=== PATIENT | male | born 1980 | race Two or more races ===

== ENCOUNTER 2021-10-16 21:43 | Observation (INO) | payer OTHER ==
[2021-10-16] MEDS ORDERED: MORPHINE SULFATE 4 MG/ML SYRINGE IV STA (22:22)
--- NOTE | 2021-10-16 22:48 | ED ---
Abdominal Pain HPI - General Chief Complaint: Abdominal Pain Stated Complaint: Severe stomach pain Time Seen by Provider: 10/16/21 22:00 Source: patient Mode of arrival: ambulatory Limitations: no limitations - History of Present Illness MD Complaint: abdominal pain Onset/Timin -: hour(s) Location: periumbilical, epigastric Radiation: none Migration to: no migration Severity: moderate Quality: other (Squeezing/tightness) Consistency: constant Improves With: nothing Worsens With: nothing Associated Symptoms: denies other symptoms - Related Data Home Medications Medication Instructions Recorded Confirmed No Known Home Medications 10/16/21 10/16/21 Allergies Allergy/AdvReac Type Severity Reaction Status Date / Time No Known Allergies Allergy Verified 10/16/21 22:17 Review of Systems ROS Statement: Those systems with pertinent positive or pertinent negative responses have been documented in the HPI. ROS Other: All systems not noted in ROS Statement are negative. Constitutional: Denies: fever, chills Respiratory: Denies: cough, dyspnea Cardiovascular: Denies: chest pain, palpitations Gastrointestinal: Reports: as per HPI, abdominal pain, diarrhea. Denies: nausea, vomiting, constipation, hematemesis, melena, hematochezia Genitourinary: Denies: dysuria, hematuria, testicular pain, testicular mass Musculoskeletal: Denies: back pain Skin: Denies: rash Neurological: Denies: headache, weakness, numbness Past Medical History Past Medical History: No Reported History History of Any Multi-Drug Resistant Organisms: None Reported Past Surgical History: Ear Surgery Past Psychological History: No Psychological Hx Reported Smoking Status: Never smoker Past Alcohol Use History: None Reported Past Drug Use History: None Reported General Exam Limitations: no limitations General appearance: alert, in no apparent distress Head exam: Present: atraumatic, normocephalic Eye exam: Present: normal appearance. Absent: scleral icterus, conjunctival injection Respiratory exam: Present: normal lung sounds bilaterally. Absent: respiratory distress, wheezes, rales, rhonchi, stridor Cardiovascular Exam: Present: regular rate, normal rhythm, normal heart sounds. Absent: systolic murmur, diastolic murmur, rubs, gallop GI/Abdominal exam: Present: soft, hernia (Small umbilical hernia with mild tenderness.). Absent: distended, tenderness, guarding, rebound, rigid, mass, pulsatile mass Extremities exam: Present: normal inspection, normal capillary refill. Absent: pedal edema, calf tenderness Back exam: Present: normal inspection. Absent: CVA tenderness (R), CVA tenderness (L) Neurological exam: Present: alert Skin exam: Present: warm, dry, intact, normal color. Absent: rash Course Vital Signs 10/16/21 21:44 Temperature 97.9 F Pulse Rate 79 Respiratory 20 Rate Blood Pressure 148/84 O2 Sat by Pulse 98 Oximetry Medical Decision Making - Lab Data Result diagrams: 10/16/21 22:44 10/16/21 22:44 Lab Results 10/16/21 10/16/21 10/16/21 Range/Units 22:44 22:44 22:44 WBC 14.7 H (3.8-10.6) k/uL RBC 5.03 (4.30-5.90) m/uL Hgb 15.5 (13.0-17.5) gm/dL Hct 45.2 (39.0-53.0) % MCV 89.9 (80.0-100.0) fL MCH 30.7 (25.0-35.0) pg MCHC 34.2 (31.0-37.0) g/dL RDW 13.0 (11.5-15.5) % Plt Count 215 (150-450) k/uL MPV 8.3 Neutrophils % 81 % Lymphocytes % 12 % Monocytes % 6 % Eosinophils % 1 % Basophils % 0 % Neutrophils # 11.9 H (1.3-7.7) k/uL Lymphocytes # 1.7 (1.0-4.8) k/uL Monocytes # 0.9 (0-1.0) k/uL Eosinophils # 0.1 (0-0.7) k/uL Basophils # 0.1 (0-0.2) k/uL Sodium 138 (137-145) mmol/L Potassium 3.7 (3.5-5.1) mmol/L Chloride 100 (98-107) mmol/L Carbon Dioxide 31 H (22-30) mmol/L Anion Gap 7 mmol/L BUN 12 (9-20) mg/dL Creatinine 0.94 (0.66-1.25) mg/dL Est GFR (CKD-EPI)AfAm >90 (>60 ml/min/1.73 sqM) Est GFR (CKD-EPI)NonAf >90 (>60 ml/min/1.73 sqM) Glucose 140 H (74-99) mg/dL Plasma Lactic Acid Mak (0.7-2.0) mmol/L Calcium 10.7 H (8.4-10.2) mg/dL Total Bilirubin 1.2 (0.2-1.3) mg/dL AST 28 (17-59) U/L ALT 45 (4-49) U/L Alkaline Phosphatase 61 (38-126) U/L Total Protein 7.9 (6.3-8.2) g/dL Albumin 4.5 (3.5-5.0) g/dL Amylase 69 (30-110) U/L Lipase 60 (23-300) U/L Urine Color Yellow Urine Appearance Turbid (Clear) Urine pH 7.0 (5.0-8.0) Ur Specific [place] 1.016 (1.001-1.035) Urine Protein Negative (Negative) Urine Glucose (UA) Negative (Negative) Urine Ketones 1+ H (Negative) Urine Blood Negative (Negative) Urine Nitrite Negative (Negative) Urine Bilirubin Negative (Negative) Urine Urobilinogen <2.0 (<2.0) mg/dL Ur Leukocyte Esterase Negative (Negative) Urine WBC 1 (0-5) /hpf Amorphous Sediment Moderate H (None) /hpf Urine Bacteria Rare H (None) /hpf Urine Mucus Rare H (None) /hpf 10/16/21 Range/Units 22:44 WBC (3.8-10.6) k/uL RBC (4.30-5.90) m/uL Hgb (13.0-17.5) gm/dL Hct (39.0-53.0) % MCV (80.0-100.0) fL MCH (25.0-35.0) pg MCHC (31.0-37.0) g/dL RDW (11.5-15.5) % Plt Count (150-450) k/uL MPV Neutrophils % % Lymphocytes % % Monocytes % % Eosinophils % % Basophils % % Neutrophils # (1.3-7.7) k/uL Lymphocytes # (1.0-4.8) k/uL Monocytes # (0-1.0) k/uL Eosinophils # (0-0.7) k/uL Basophils # (0-0.2) k/uL Sodium (137-145) mmol/L Potassium (3.5-5.1) mmol/L Chloride (98-107) mmol/L Carbon Dioxide (22-30) mmol/L Anion Gap mmol/L BUN (9-20) mg/dL Creatinine (0.66-1.25) mg/dL Est GFR (CKD-EPI)AfAm (>60 ml/min/1.73 sqM) Est GFR (CKD-EPI)NonAf (>60 ml/min/1.73 sqM) Glucose (74-99) mg/dL Plasma Lactic Acid Mak 1.2 (0.7-2.0) mmol/L Calcium (8.4-10.2) mg/dL Total Bilirubin (0.2-1.3) mg/dL AST (17-59) U/L ALT (4-49) U/L Alkaline Phosphatase (38-126) U/L Total Protein (6.3-8.2) g/dL Albumin (3.5-5.0) g/dL Amylase (30-110) U/L Lipase (23-300) U/L Urine Color Urine Appearance (Clear) Urine pH (5.0-8.0) Ur Specific [place] (1.001-1.035) Urine Protein (Negative) Urine Glucose (UA) (Negative) Urine Ketones (Negative) Urine Blood (Negative) Urine Nitrite (Negative) Urine Bilirubin (Negative) Urine Urobilinogen (<2.0) mg/dL Ur Leukocyte Esterase (Negative) Urine WBC (0-5) /hpf Amorphous Sediment (None) /hpf Urine Bacteria (None) /hpf Urine Mucus (None) /hpf Disposition Clinical Impression: Abdominal pain, Cholecystitis Disposition: ADMITTED IP TO THIS HOSP Condition: Good Is patient prescribed a controlled substance at d/c from ED?: No Referrals: Ro Granado MD [Primary Care Provider] - 1-2 days
--- NOTE | 2021-10-16 22:58 | CT ---
EXAMINATION TYPE: CT abdomen pelvis wo con DATE OF EXAM: 10/16/2021 COMPARISON: None HISTORY: Epigastric pain CT DLP: 613.1 mGycm Automated exposure control for dose reduction was used. Images obtained from the diaphragm to the floor the pelvis without contrast. Lung bases are clear. There is no pleural effusion. Heart size is normal. There is no pericardial eff usion. Liver spleen and stomach pancreas gallbladder appear intact. Bile ducts are nondilated. There is some minimal stranding around the gallbladder. There is no adrenal mass. Kidneys have normal size and contour. There is no hydronephrosis. Ureters a re not dilated. There is no retroperitoneal adenopathy. Appendix is lateral and appears normal. Bladd er distends smoothly. There is no inguinal hernia. There is no free fluid in the pelvis. There is no evidence of a pelvic mass. The lumbar vertebrae have normal alignment. There is no compression fractu re. Bony pelvis is intact. The hip joints are intact. There is no mesenteric edema. There is no ascites or free air. There is no evidence of a bowel obstru ction. Small bowel pattern is normal. IMPRESSION: There is suggestion of some mild stranding around the gallbladder that could be cholecystitis. No dil ated ducts. Normal appendix.
[2021-10-16 23:18] LABS: Basophils # (A) 0.1 k/uL (0-0.2); Basophils % (A) 0 %; Eosinophils # (A) 0.1 k/uL (0-0.7); Eosinophils % (A) 1 %; HCT 45.2 % (39.0-53.0); HGB 15.5 gm/dL (13.0-17.5); Lymphocytes # (A) 1.7 k/uL (1.0-4.8); Lymphocytes % (A) 12 %; MCH 30.7 pg (25.0-35.0); MCHC 34.2 g/dL (31.0-37.0); MCV 89.9 fL (80.0-100.0); Mean Platelet Volume 8.3; Monocytes # (A) 0.9 k/uL (0-1.0); Monocytes % (A) 6 %; Neutrophils # (A) 11.9 k/uL (1.3-7.7); Neutrophils % (A) 81 %; Platelet Count 215 k/uL (150-450); RBC 5.03 m/uL (4.30-5.90); WBC 14.7 k/uL (3.8-10.6)
[2021-10-16 23:30] LABS: ALT 45 U/L (4-49); AST 28 U/L (17-59); African American GFR (CKD) >90 (>60 ml/min/1.73 sqM); Albumin 4.5 g/dL (3.5-5.0); Alkaline Phosphatase 61 U/L (38-126); Amylase 69 U/L (30-110); Anion Gap 7 mmol/L; Blood Urea Nitrogen 12 mg/dL (9-20); Calcium 10.7 mg/dL (8.4-10.2); Carbon Dioxide 31 mmol/L (22-30); Chloride 100 mmol/L (98-107); Glucose 140 mg/dL (74-99); Lipase 60 U/L (23-300); Non-African American GFR(CKD) >90 (>60 ml/min/1.73 sqM); Potassium 3.7 mmol/L (3.5-5.1); Sodium 138 mmol/L (137-145); Total Bilirubin 1.2 mg/dL (0.2-1.3); Total Protein 7.9 g/dL (6.3-8.2)
[2021-10-16 23:59] LABS: Amorphous Sediment,Urine Moderate /hpf; Appearance,Urine Turbid (Clear); Bacteria,Urine Rare /hpf; Bilirubin,Urine Negative (Negative); Blood,Urine Negative (Negative); Color,Urine Yellow; Glucose,Urine (UA) Negative (Negative); Ketones,Urine 1+ (Negative); Leukocyte Esterase,Urine Negative (Negative); Mucus,Urine Rare /hpf; Nitrite,Urine Negative (Negative); Protein,Urine Negative (Negative); Specific Gravity,Urine 1.016 (1.001-1.035); Urobilinogen,Urine <2.0 mg/dL (<2.0); WBC,Urine 1 /hpf (0-5)
[2021-10-17] MEDS ORDERED: ONDANSETRON 4 MG/2 ML VIAL IVP PRN (00:10)
[2021-10-17] MEDS ORDERED: NALOXONE 0.4 MG/ML 1 ML VIAL IV PRN (00:10)
[2021-10-17] MEDS ORDERED: PIPERACILLIN-TAZOBACTAM 3.375 GM in SODIUM CHLORIDE 0.9% 100 ML IVPB STA (00:11)
[2021-10-17] MEDS: MORPHINE SULFATE 4 MG/ML SYRINGE IV PRN ×2 (01:33→21:26)
[2021-10-17] MEDS: SODIUM CHLORIDE 0.9% 1,000 ML IV SCH ×4 (06:59→23:42)
[2021-10-17] MEDS: PIPERACILLIN-TAZOBACTAM 3.375 GM in SODIUM CHLORIDE 0.9% 100 ML IVPB SCH ×2 (08:34→19:07)
[2021-10-17] MEDS: PANTOPRAZOLE 40 MG/10 ML VIAL IV SCH (08:34)
--- NOTE | 2021-10-17 09:49 | P.GSHP ---
History of Present Illness H&P Date: 10/17/21 CHIEF COMPLAINT: Abdominal pain HISTORY OF PRESENT ILLNESS: This is a 41-year-old male who presents with periumbilical and epigastric abdominal pain. He reports that pain started 3 days ago. He has been nausea and reports a decreased appetite. He is tender in the right upper quadrant on exam. He had a computed tomography scan of the abdomen and pelvis showing stranding around the gallbladder could be related to cholecystitis. White count elevated at 14.7. He is currently nothing by mouth and scheduled for laparoscopic cholecystectomy today with Dr. love. He denies any fever chills or sweats. PAST MEDICAL HISTORY: None PAST SURGICAL HISTORY: No prior abdominal surgeries MEDICATIONS: See list. ALLERGIES: See list. SOCIAL HISTORY: No illicit drug use. REVIEW OF SYSTEMS: CONSTITUTIONAL: Denies fever or chills. HEENT: Denies blurred vision, vision changes, or eye pain. Denies hemoptysis CARDIOVASCULAR: Denies chest pain or pressure. RESPIRATORY: No shortness of breath. GASTROINTESTINAL: See HPI for pertinent findings HEMATOLOGIC: Denies bleeding disorders. GENITOURINARY: Denies any blood in urine or increased urinary frequency. SKIN: Denies pruitis. Denies rash. PHYSICAL EXAM: VITAL SIGNS: Reviewed GENERAL: Well-developed in no acute distress. HEENT: No sclera icterus. Extraocular movements grossly intact. Moist buccal mucosa. Head is atraumatic, normocephalic. No nasal drainage. ABDOMEN: Soft. Nondistended. Tenderness to palpation right upper quadrant NEUROLOGIC: Alert and oriented. Cranial nerves II through XII grossly intact. LABORATORY DATA: WBC 14.7 hemoglobin 15.5 platelets 2:15 Sodium 138 potassium 3.7 crit and 0.94 Lactic acid 1.2 LFTs normal Lipase 60 IMAGING: Computed tomography scan abdomen and pelvis suggestive of some mild stranding around the gallbladder that could be cholecystitis. No dilated ducts. Normal appendix. ASSESSMENT: 1. Acute cholecystitis PLAN: -Patient scheduled for laparoscopic cholecystectomy today with Dr. love -Keep patient nothing by mouth -Continue IV fluids -Continue IV antibiotics -Continue pain medication as needed Physician Food And Drug Inspector note has been reviewed by physician. Signing provider agrees with the documented findings, assessment, and plan of care. Past Medical History Past Medical History: No Reported History History of Any Multi-Drug Resistant Organisms: None Reported Past Surgical History: Ear Surgery Past Psychological History: No Psychological Hx Reported Smoking Status: Never smoker Past Alcohol Use History: None Reported Past Drug Use History: None Reported Medications and Allergies Home Medications Medication Instructions Recorded Confirmed Type No Known Home Medications 10/16/21 10/16/21 History Allergies Allergy/AdvReac Type Severity Reaction Status Date / Time No Known Allergies Allergy Verified 10/16/21 22:17 Surgical - Exam Vital Signs Temp Pulse Resp BP Pulse Ox 97.9 F 79 20 148/84 98 10/16/21 21:44 10/16/21 21:44 10/16/21 21:44 10/16/21 21:44 10/16/21 21:44 Results - Labs 10/16/21 22:44 10/16/21 22:44 Abnormal Lab Results - Last 24 Hours (Table) 10/16/21 10/16/21 10/16/21 Range/Units 22:44 22:44 22:44 WBC 14.7 H (3.8-10.6) k/uL Neutrophils # 11.9 H (1.3-7.7) k/uL Carbon Dioxide 31 H (22-30) mmol/L Glucose 140 H (74-99) mg/dL Calcium 10.7 H (8.4-10.2) mg/dL Urine Ketones 1+ H (Negative) Amorphous Sediment Moderate H (None) /hpf Urine Bacteria Rare H (None) /hpf Urine Mucus Rare H (None) /hpf Diabetes panel 10/16/21 Range/Units 22:44 Sodium 138 (137-145) mmol/L Potassium 3.7 (3.5-5.1) mmol/L Chloride 100 (98-107) mmol/L Carbon Dioxide 31 H (22-30) mmol/L BUN 12 (9-20) mg/dL Creatinine 0.94 (0.66-1.25) mg/dL Glucose 140 H (74-99) mg/dL Calcium 10.7 H (8.4-10.2) mg/dL AST 28 (17-59) U/L ALT 45 (4-49) U/L Alkaline Phosphatase 61 (38-126) U/L Total Protein 7.9 (6.3-8.2) g/dL Albumin 4.5 (3.5-5.0) g/dL Calcium panel 10/16/21 Range/Units 22:44 Calcium 10.7 H (8.4-10.2) mg/dL Albumin 4.5 (3.5-5.0) g/dL Pituitary panel 10/16/21 Range/Units 22:44 Sodium 138 (137-145) mmol/L Potassium 3.7 (3.5-5.1) mmol/L Chloride 100 (98-107) mmol/L Carbon Dioxide 31 H (22-30) mmol/L BUN 12 (9-20) mg/dL Creatinine 0.94 (0.66-1.25) mg/dL Glucose 140 H (74-99) mg/dL Calcium 10.7 H (8.4-10.2) mg/dL Adrenal panel 10/16/21 Range/Units 22:44 Sodium 138 (137-145) mmol/L Potassium 3.7 (3.5-5.1) mmol/L Chloride 100 (98-107) mmol/L Carbon Dioxide 31 H (22-30) mmol/L BUN 12 (9-20) mg/dL Creatinine 0.94 (0.66-1.25) mg/dL Glucose 140 H (74-99) mg/dL Calcium 10.7 H (8.4-10.2) mg/dL Total Bilirubin 1.2 (0.2-1.3) mg/dL AST 28 (17-59) U/L ALT 45 (4-49) U/L Alkaline Phosphatase 61 (38-126) U/L Total Protein 7.9 (6.3-8.2) g/dL Albumin 4.5 (3.5-5.0) g/dL
[2021-10-17] MEDS ORDERED: IV FLUID CONTINUATION 1,000 ML IV ONE (13:00)
[2021-10-17] MEDS ORDERED: HEPARIN SODIUM,PORCINE 5,000 UNIT/ML 1 ML VIAL SQ ONE (13:11)
[2021-10-17] MEDS ORDERED: HEPARIN SODIUM,PORCINE/PF 5,000 UNIT/0.5 ML SYRINGE SQ ONE (13:11)
[2021-10-17] MEDS ORDERED: LIDOCAINE 1% INJ 10MG/ML (20 ML MDV) ONE (13:26)
[2021-10-17] MEDS ORDERED: PROPOFOL 10 MG/ML 20 ML VIAL IV ONE (13:26)
[2021-10-17] MEDS ORDERED: GLYCOPYRROLATE 0.2 MG/ML 2 ML VIAL ONE (13:26)
[2021-10-17] MEDS ORDERED: HYDROmorphone (PF) 1 MG/ML ONE (13:26)
[2021-10-17] MEDS ORDERED: NEOSTIGMINE 1 MG/ML 10 ML VIAL ONE (13:26)
[2021-10-17] MEDS ORDERED: MIDAZOLAM 2 MG/2 ML VIAL ONE (13:26)
[2021-10-17] MEDS ORDERED: ROCURONIUM 10 MG/ML (5 ML VIAL) IV ONE (13:26)
[2021-10-17] MEDS ORDERED: fentaNYL (PF) 50 MCG/ML 2 ML AMP ONE (13:26)
[2021-10-17] MEDS ORDERED: SUCCINYLCHOLINE CHLORIDE 100 MG/5 ML SYR IV ONE (13:26)
[2021-10-17] MEDS ORDERED: BUPIVACAIN-EPI 0.25%-1:200,000 30 ML VIAL SQ ONE ×2 (13:28→13:47)
--- NOTE | 2021-10-17 14:24 | P.OP ---
Date of Procedure: 10/17/21 Preoperative Diagnosis: Cholecystitis Postoperative Diagnosis: Cholecystitis Cholelithiasis Procedure(s) Performed: Laparoscopic cholecystectomy Anesthesia: THIEN Surgeon: David Muhammad Estimated Blood Loss (ml): 10 Pathology: other (Gallbladder) Condition: stable Disposition: PACU Description of Procedure: The patient was placed on the operating table. The patient received a general endotracheal tube anesthesia. The patients abdomen was prepped and draped in the usual sterile fashion. Through an infraumbilical stab incision, the fascia of the anterior abdominal wall was grasped with a pair of Kochers and then the Veress needle was placed in the peritoneal cavity. Position of the Veress needle was confirmed with positive drop test. The abdomen was then insufflated. After adequate insufflation, the 10 mm trocar was placed in the peritoneal cavity. Following this the laparoscope was placed in the peritoneal cavity. The patient was placed in the head-up, right side up position and then a 5 mm trocar was placed in the right lateral and right subcostal position under direct visualization. A 8 mm trocar was placed in the epigastric position. The gallbladder was grasped in the fundus and infundibulum. Traction on the gallbladder was placed in the lateral and the cephalad positions. The triangle of [place] was visualized.. The cystic duct was bluntly dissected until the union of the cystic duct and common bile duct was seen. A critical view of safety was achieved. The cystic duct was then divided and sealed with the Harmonic scissors. A PDS Endoloop was then placed throughout the cystic duct stump. The cystic artery divided and sealed with the Harmonic scissors. The gallbladder was then removed from the liver bed using Harmonic scissors. The gallbladder was then extracted through the epigastric port site. Operative field was checked for any bleeding spots and Harmonic scissors was used to coagulate the liver bed. The abdomen was irrigated. The trocars were removed. The skin was closed using interrupted 3-0 Vicryl suture. Dermabond dressing were applied. The patient tolerated the procedure well.
[2021-10-17] MEDS ORDERED: ACETAMINOPHEN IV (For NPO) 1,000 MG/100 ML VIAL IVPB ONE (14:49)
[2021-10-17] MEDS ORDERED: HYDROmorphone 0.5 MG/0.5 ML SYRINGE IVP ONE ×2 (15:11→15:22)
[2021-10-17] MEDS ORDERED: SODIUM CHLORIDE 0.9% 1,000 ML IV ONE (15:36)
[2021-10-17] MEDS: HYDROmorphone 1 MG/ML 1 ML SYRINGE IVP PRN (22:14)
[2021-10-18] MEDS: PIPERACILLIN-TAZOBACTAM 3.375 GM in SODIUM CHLORIDE 0.9% 100 ML IVPB SCH ×3 (00:22→16:46)
[2021-10-18] MEDS: HYDROmorphone 1 MG/ML 1 ML SYRINGE IVP PRN ×3 (00:22→20:20)
[2021-10-18] MEDS: ENOXAPARIN 40 MG/0.4 ML SYRINGE SQ SCH (07:40)
[2021-10-18] MEDS: PANTOPRAZOLE 40 MG/10 ML VIAL IV SCH (07:40)
[2021-10-18] MEDS: KETOROLAC 30 MG/ML 1 ML VIAL IVP PRN ×2 (08:37→15:12)
[2021-10-18] MEDS ORDERED: HYDROcodone/APAP 5-325MG 1 EACH TAB PO PRN (09:27)
[2021-10-18 09:28] LABS: Basophils % (A) 0 %; Eosinophils # (A) 0.1 k/uL (0-0.7); Eosinophils % (A) 1 %; HCT 39.3 % (39.0-53.0); HGB 13.1 gm/dL (13.0-17.5); Lymphocytes # (A) 1.5 k/uL (1.0-4.8); Lymphocytes % (A) 14 %; MCH 30.8 pg (25.0-35.0); MCHC 33.2 g/dL (31.0-37.0); MCV 92.8 fL (80.0-100.0); Mean Platelet Volume 8.4; Monocytes # (A) 0.8 k/uL (0-1.0); Monocytes % (A) 8 %; Neutrophils # (A) 8.4 k/uL (1.3-7.7); Neutrophils % (A) 77 %; Platelet Count 154 k/uL (150-450); RBC 4.24 m/uL (4.30-5.90); RDW 13.1 % (11.5-15.5); WBC 10.8 k/uL (3.8-10.6)
--- NOTE | 2021-10-18 13:21 | P.DS ---
Providers Date of admission: 10/17/21 00:10 Expected date of discharge: 10/18/21 Attending physician: David Muhammad Primary care physician: Ro Granado Hospital Course: Discharge diagnosis 1. Acute cholecystitis and cholelithiasis status post laparoscopic cholecystectomy Hospital course This is a 41-year-old male who presents with periumbilical and epigastric abdominal pain. He reports that pain started 3 days ago. He has been nausea and reports a decreased appetite. He is tender in the right upper quadrant on exam. He had a computed tomography scan of the abdomen and pelvis showing stranding around the gallbladder could be related to cholecystitis. Patient is status post laparoscopic cholecystectomy. He tolerated surgery well. His pain is controlled. He is tolerating diet. He is afebrile. He is up and ambulating . He is stable for discharge. Please refer to chart for any further details. Physician Director Drug Safety note has been reviewed by physician. Signing provider agrees with the documented findings, assessment, and plan of care. Patient Condition at Discharge: Stable Plan - Discharge Summary Discharge Rx Participant: No New Discharge Prescriptions: New HYDROcodone/APAP 5-325MG [[place] 5-325] 1 tab PO Q6HR PRN 3 Days #12 tab PRN Reason: Pain Docusate [Colace] 100 mg PO BID #30 capsule Discharge Medication List Docusate [Colace] 100 mg PO BID #30 capsule 10/18/21 [Rx] HYDROcodone/APAP 5-325MG [[place] 5-325] 1 tab PO Q6HR PRN 3 Days #12 tab 10/18/21 [Rx] Follow up Appointment(s)/Referral(s): Ro Granado MD [Primary Care Provider] - 1-2 days David Muhammad MD [STAFF PHYSICIAN] - 1 Week Activity/Diet/Wound Care/Special Instructions: No driving while taking [place] No lifting over 10 pounds You may shower. No soaking or tub baths for 2 weeks Very light activity until you are reevaluated at your follow up appointment with your surgeon Discharge Disposition: HOME SELF-CARE
[2021-10-18] MEDS: SODIUM CHLORIDE 0.9% 1,000 ML IV SCH ×2 (16:42→16:43)
[2021-10-19] MEDS: PIPERACILLIN-TAZOBACTAM 3.375 GM in SODIUM CHLORIDE 0.9% 100 ML IVPB SCH (01:00)
[2021-10-19] MEDS: SODIUM CHLORIDE 0.9% 1,000 ML IV SCH ×2 (03:29→05:56)
[2021-10-19] MEDS ORDERED: ACETAMINOPHEN TAB 325 MG TAB PO PRN (04:34)
[2021-10-19 07:46] VITALS: RESP 16
[2021-10-19] MEDS: ENOXAPARIN 40 MG/0.4 ML SYRINGE SQ SCH (08:09)
[2021-10-19] MEDS: PANTOPRAZOLE 40 MG/10 ML VIAL IV SCH (08:09)
[2021-10-19] MEDS: KETOROLAC 30 MG/ML 1 ML VIAL IVP PRN (08:16)
[2021-10-19 10:21] LABS: Basophils % (A) 0 %; Eosinophils # (A) 0.3 k/uL (0-0.7); Eosinophils % (A) 3 %; HCT 36.7 % (39.0-53.0); HGB 12.2 gm/dL (13.0-17.5); Lymphocytes # (A) 1.9 k/uL (1.0-4.8); Lymphocytes % (A) 19 %; MCH 30.9 pg (25.0-35.0); MCHC 33.3 g/dL (31.0-37.0); MCV 92.8 fL (80.0-100.0); Mean Platelet Volume 8.8; Monocytes # (A) 0.7 k/uL (0-1.0); Monocytes % (A) 7 %; Neutrophils # (A) 6.9 k/uL (1.3-7.7); Neutrophils % (A) 69 %; Platelet Count 154 k/uL (150-450); RBC 3.96 m/uL (4.30-5.90); RDW 12.9 % (11.5-15.5); WBC 9.9 k/uL (3.8-10.6)
[2021-10-19 10:24] LABS: ALT 98 U/L (4-49); AST 45 U/L (17-59); African American GFR (CKD) >90 (>60 ml/min/1.73 sqM); Albumin 3.1 g/dL (3.5-5.0); Alkaline Phosphatase 45 U/L (38-126); Anion Gap 3 mmol/L; Blood Urea Nitrogen 11 mg/dL (9-20); Calcium 8.6 mg/dL (8.4-10.2); Carbon Dioxide 28 mmol/L (22-30); Chloride 106 mmol/L (98-107); Glucose 140 mg/dL (74-99); Non-African American GFR(CKD) 80 (>60 ml/min/1.73 sqM); Potassium 3.6 mmol/L (3.5-5.1); Sodium 137 mmol/L (137-145); Total Bilirubin 1.7 mg/dL (0.2-1.3); Total Protein 6.1 g/dL (6.3-8.2)
--- NOTE | 2021-10-19 13:19 | XR ---
EXAMINATION TYPE: XR chest 1V portable DATE OF EXAM: 10/19/2021 COMPARISON: NONE HISTORY: Postop fever TECHNIQUE: Single frontal view of the chest is obtained. FINDINGS: Bilateral subsegmental areas of infiltrate. A small bilateral effusions. No pneumothorax. Heart size normal. No overt failure. IMPRESSION: Bilateral lower lobe infiltrate.
--- NOTE | 2021-10-19 13:48 | CONS ---
CONSULTATION DATE OF SERVICE: 10/19/2021 REASON FOR CONSULTATION: Advice regarding fever and other multiple medical issues. HISTORY OF PRESENT ILLNESS: This 41-year-old gentleman with no significant past medical history except ear surgery, being followed by Dr. Granado in the outpatient setting, was admitted with abdominal pain, acute cholelithiasis and cholecystitis, and underwent laparoscopic cholecystectomy by Dr. Muhammad. Postoperatively, the patient was running a fever up to 100 degrees. Patient doing poorly on incentive spirometry. No chest pain. No palpitations. No cough. No sputum. PAST MEDICAL HISTORY: Ear problems and surgery. HOME MEDICATIONS: Noted. ALLERGIES: NONE. FAMILY HISTORY: No history of heart disease or strokes. SOCIAL HISTORY: No history of smoking. No history of alcohol. REVIEW OF SYSTEMS: Fourteen-point review of systems negative except as mentioned earlier. PHYSICAL EXAMINATION: Pulse 76, blood pressure 143/80, respirations 16, T-max 101.6. HEENT: Conjunctivae normal. CARDIOVASCULAR: S1, S2 muffled. RESPIRATION: Breath sounds diminished at the bases. No rhonchi. No crackles. ABDOMEN: Soft. Status post laparoscopic cholecystectomy. No guarding. No rigidity. LEGS: No edema. No swelling. NERVOUS SYSTEM: No focal deficit. SKIN: As mentioned earlier. LABS: WBC 9.3, hemoglobin 12.2. ASSESSMENT: 1. Status post laparoscopic cholecystectomy. 2. Postoperative fever. 3. History of myringotomy. RECOMMENDATIONS AND DISCUSSION: In this 41-year-old gentleman who presented after surgery, at this time I recommend a portable chest x-ray. Patient does not have leukocytosis. UA seems unremarkable. Recommend incentive spirometry, DVT prophylaxis. Closely follow with primary physician. Empiric antibiotics. Rest of the recommendations per Surgery. MMODL / IJN: [id number] /
[2021-10-19 16:08] VITALS: BP 150/86; PULSE 78; TEMP 99.1
== END 2021-10-19 16:47 | disposition home or self-care (01) ==
LOC: EC 21:43 → 1SOBS 10-17 00:10 → 6NMEDSUR 10-17 16:42
PROVIDERS: ADMIT Surgery; ATTEND Surgery
DX: K80.00 Calculus of gallbladder with acute cholecystitis without obstruction (principal); R50.82 Postprocedural fever; E80.7 Disorder of bilirubin metabolism, unspecified; R91.8 Other nonspecific abnormal finding of lung field; K42.9 Umbilical hernia without obstruction or gangrene; Z98.890 Other specified postprocedural states
CPT/HCPCS: 96376; 96375; 96374; 99285; 36415; 88304; 80053 ×2; 82150; 83605; 83690; 85025 ×3; 81001; 87635; 71045; 74176; 47562; G0378 ×4; J2543 ×3; J2250; J2270 ×2; J1644; J2710; J2405; J2001; J1650 ×2; J3010; J1885 ×2; J1170 ×3; J0131; J0330; J2704; C9113 ×3